=== PATIENT | male | born 1985 | race African-American/Black ===

== ENCOUNTER 2019-07-20 13:01 | Emergency (ER) | payer BC ==
--- NOTE | 2019-07-20 14:03 | RAD ---
Exam: Chest one view HISTORY:Chest tightness Comparison: None FINDINGS: Cardiac silhouette: Normal Aorta: Unremarkable Pulmonary vessels: Normal Costophrenic angles: Clear LUNGS: No masses or consolidation. Pneumothorax: None Osseous abnormalities: None IMPRESSION: No acute cardiopulmonary process.
[2019-07-20 14:04] LABS: Hemoglobin 14.3 g/dL (14.0-18.0); Mean Corpuscular HGB CONC 32.7 g/dL (32.0-36.0); Mean Corpuscular Hemoglobin 28.3 pg (27.0-31.0); Mean Corpuscular Volume 86.4 fL (78.0-98.0); Mean Platelet Volume 7.9 fL (7.4-10.4); Platelet Count 208 thou/uL (130-400); RBC Distribution Width 13.1 % (11.5-14.5); Red Blood Cell (RBC) Count 5.07 mill/uL (4.70-6.10); White Blood Cell (WBC) Count 3.9 thou/uL (4.8-10.8)
[2019-07-20 14:19] LABS: Eosinophils 4 % (0-10); Lymphocytes 46 % (21-51); MDiff Complete? YES; Monocytes 3 % (0-10); Neutrophil 43 % (42-75); Platelet Morphology Comment Appears Adequate; RBC Morphology Normal; Reactive Lymphocytes 1 % (0-10)
[2019-07-20 14:24] LABS: ALT (SGPT) 21 U/L (8-55); AST (SGOT) 19 U/L (5-34); Albumin 4.8 g/dL (3.5-5.0); Alkaline Phosphatase 66 U/L (40-110); Anion Gap 12 mmol/L (10-20); BUN (Urea Nitrogen) 13 mg/dL (8.9-20.6); Bilirubin, Total 0.5 mg/dL (0.2-1.2); Calc. Creatinine Clearance 0 mL/min (70-130); Carbon Dioxide 30 mmol/L (22-29); Chloride 103 mmol/L (98-107); Estimated GFR-MDRD 67; Glucose 95 mg/dL (70-105); Lipase 57 U/L (8-78); Potassium 4.1 mmol/L (3.5-5.1); Protein, Total 7.8 g/dL (6.0-8.3); Sodium 141 mmol/L (136-145)
[2019-07-20] MEDS ORDERED: Ketorolac Tromethamine 30 MG/ML VIAL ONE (16:05)
[2019-07-20] MEDS ORDERED: Metoclopramide HCl 10 MG/2 ML VIAL ONE (16:05)
[2019-07-20] MEDS ORDERED: diphenhydrAMINE 50 MG/ML VIAL ONE (16:20)
== END 2019-07-20 18:10 | disposition home or self-care (01) ==
LOC: ERS 13:01
DX: R07.2 Precordial pain (principal); R51 Headache
CPT/HCPCS: 36415; 71045; 80053; 82550; 83690; 84484; 85025; 93005; 96365; 96375; J1200; J1885; J2765